=== PATIENT | male | born 1985 | race Two or more races ===

== ENCOUNTER 2018-12-10 23:19 | Emergency (ER) | payer MEDICAID ==
[~2018-12-10] VITALS: Ht 172.7 cm; Wt 72.6 kg
[2018-12-11 01:21] VITALS: BP 116/64
== END 2018-12-11 01:48 | disposition home or self-care (01) ==
LOC: ER 23:28
DX: S31.21XA Laceration without foreign body of penis, initial encounter (principal); X58.XXXA Exposure to other specified factors, initial encounter; Y93.89 Activity, other specified; Y99.8 Other external cause status; Y92.89 Other specified places as the place of occurrence of the external cause